=== PATIENT | female | born 1955 | race Caucasian/White ===

== ENCOUNTER 2021-09-21 07:24 | Inpatient (IN) ==
[2021-09-21] MEDS ORDERED: *HR* HYDROmorphone PF 0.5 MG/0.5 ML SYRINGE IVP PRN (08:30)
[2021-09-21] MEDS ORDERED: *HR* FentaNYL (PF) 100 MCG/2 ML VIAL IVP PRN (08:30)
[2021-09-21] MEDS ORDERED: 0.9 % Sodium Chloride 1,000 ML IVC SCH (08:45)
[2021-09-21] MEDS ORDERED: levoFLOXacin 500 MG/100 ML 500 MG/100 ML BAG IVPB ONE (08:45)
[2021-09-21] MEDS ORDERED: Ondansetron 4 MG/2 ML VIAL ONE (08:46)
[2021-09-21] MEDS ORDERED: *HR* Succinylcholine 200 MG/10 ML VIAL IVP ONE (08:46)
[2021-09-21] MEDS ORDERED: Lidocaine -MPF 2% 5 ML VIAL ONE (08:46)
[2021-09-21] MEDS ORDERED: *HR* Rocuronium Bromide 50 MG/5 ML VIAL ONE ×2 (08:46→11:34)
[2021-09-21] MEDS ORDERED: *HR* FentaNYL (PF) 100 MCG/2 ML VIAL ONE (08:47)
[2021-09-21] MEDS ORDERED: *HR* Propofol 200 MG/20 ML VIAL IVP ONE (08:47)
[2021-09-21] MEDS ORDERED: Bupivacaine/EPI 1:200k 0.25% 50 ML VIAL ONE (10:26)
[2021-09-21] MEDS ORDERED: *HR* Phenylephrine 10 MG/ML VIAL ONE (11:23)
[2021-09-21] MEDS ORDERED: EPHEDrine 50 MG/ML VIAL ONE (11:53)
[2021-09-21] MEDS ORDERED: *HR* HYDROMORPHONE 2 MG/ML VIAL ONE (12:56)
[2021-09-21] MEDS ORDERED: Naloxone 0.4 MG/ML INJ IVP PRN (14:51)
[2021-09-21] MEDS ORDERED: *HR* OxyCODONE Immed Rel 5 MG TABLET PO PRN (14:51)
[2021-09-21] MEDS ORDERED: Ondansetron 4 MG/2 ML VIAL IVP PRN (14:51)
[2021-09-21] MEDS ORDERED: *HR* HYDROcodone/Acet 5/325 mg TABLET PO PRN (14:51)
[2021-09-21] MEDS ORDERED: *HR* Belladonna Alkaloids/Opium 30 MG RECTAL SUPPOSITORY RC PRN (14:51)
[2021-09-21] MEDS: 0.9 % Sodium Chloride 1,000 ML IVC SCH (16:12)
[2021-09-21] MEDS ORDERED: Chloraseptic Spray 177 ML BOTTLE MM PRN (16:30)
[2021-09-21] MEDS: Acetaminophen IV 1,000 MG/100 ML BAG IVPB SCH (17:01)
[2021-09-21 18:38] VITALS: O2SAT 96
[2021-09-21] MEDS: Losartan/HCTZ 50-12.5 TABLET PO SCH (20:21)
[2021-09-22 01:38] LABS: Basophils % 0.1 %; Hematocrit 38.7 % (35.3-44.9); Hemoglobin 13.7 g/dL (11.5-15.4); Immature Granulocytes % 0.3 % (0-4); Lymphocytes # 0.7 K/mcL (0.6-4.6); Lymphocytes % 10.9 %; Mean Corpuscular HGB Conc 35.4 g/dL (31.6-35.5); Mean Corpuscular Hemoglobin 32.7 pg (28.0-33.3); Mean Corpuscular Volume 92.4 fL (83.0-100.0); Mean Platelet Volume 9.5 fL (9.4-12.4); Monocytes # 0.5 K/mcL (0.0-1.3); Monocytes % 7.5 %; Neutrophils # 5.4 K/mcL (1.6-8.9); Platelet Count 156 K/mcL (140-400); Red Blood Count 4.19 M/mcL (3.82-4.97); Segmented Neutrophils % 81.2 %; White Blood Count 6.7 K/mcL (4.3-11.1)
[2021-09-22 02:02] LABS: Calcium 9.1 mg/dL (8.6-10.3); Potassium 3.3 mEq/L (3.5-5.1)
[2021-09-22] MEDS: Acetaminophen IV 1,000 MG/100 ML BAG IVPB SCH ×2 (03:01→12:35)
[2021-09-22] MEDS: Losartan/HCTZ 50-12.5 TABLET PO SCH (08:48)
[2021-09-22] MEDS ORDERED: levoFLOXacin 500 MG/100 ML 500 MG/100 ML BAG IVPB SCH (09:00)
[2021-09-22] MEDS: 0.9 % Sodium Chloride 1,000 ML IVC SCH (10:15)
[2021-09-22 10:36] VITALS: BP 166/87; PULSE 69; TEMP 97.7
== END 2021-09-22 14:22 | disposition home or self-care (01) | DRG 660 ==
LOC: SAMDAY 07:24 → 3ANU 14:45
PROVIDERS: ADMIT Urology; ATTEND Urology